=== PATIENT | female | born 1995 | race Two or more races ===

== ENCOUNTER 2020-01-07 09:46 | Emergency (ER) | payer SELFPAY ==
[~2020-01-07] VITALS: Ht 160 cm; Wt 80.0 kg
[2020-01-07] MEDS ORDERED: SODIUM CHLORIDE 0.9% 1,000 ML IV ONE (10:21)
[2020-01-07] MEDS ORDERED: FAMOTIDINE 20MG/2ML VIAL IV STA (10:21)
[2020-01-07] MEDS ORDERED: KETOROLAC 30MG/ML VIAL IV STA (10:21)
[2020-01-07 10:39] LABS: BASOPHILS % 0.3 % (0.0-2.0); EOSINOPHILS % 0.3 % (0.0-5.0); HEMATOCRIT. 40.1 % (36.0-48.0); HEMOGLOBIN. 13.6 g/dL (12.0-16.0); LYMPHOCYTES % 19.9 % (20.0-50.0); MEAN CORPUSCULAR HEMOGLOBIN 27.6 pg (28.0-32.0); MEAN CORPUSCULAR VOLUME 81.3 fL (81.0-99.0); MEAN PLATELET VOLUME 7.6 fl (7.4-10.4); MONOCYTES % 3.7 % (2.0-8.0); NEUTROPHILS % 75.8 % (40.0-76.0); PLATELET 272 x1000/uL (130-400); RED BLOOD CELL COUNT 4.94 mill/uL (4.2-5.4); RED CELL DISTRIBUTION WIDTH 14.9 % (11.6-14.6)
[2020-01-07 10:41] LABS: INR 0.9; PROTHROMBIN TIME 10.1 sec (9.6-11.0)
[2020-01-07 10:49] LABS: CHLORIDE 110 mEq/L (98-107); CLARITY URINE CLEAR (CLEAR); COLOR URINE YELLOW (YELLOW); KETONES URINE NEGATIVE (NEGATIVE); LEUKOCYTE ESTERASE URINE TRACE (NEGATIVE); NITRITE URINE NEGATIVE (NEGATIVE); OCCULT BLOOD URINE NEGATIVE (NEGATIVE); PH URINE 5.5 (4.5-8.0); PROTEIN URINE NEGATIVE (NEGATIVE); SPECIFIC GRAVITY URINE 1.029 (1.005-1.030)
[2020-01-07 12:00] VITALS: BP 110/69
== END 2020-01-07 12:14 | disposition home or self-care (01) ==
LOC: ER 09:46
DX: K80.20 Calculus of gallbladder without cholecystitis without obstruction (principal)
CPT/HCPCS: 36415; 76705; 80053; 81003; 81025; 83690; 85025; 85610; 96361; 96374; 96375; 99284; J1885; J3490; J7030

== ENCOUNTER 2020-01-08 08:14 | Emergency (ER) | payer SELFPAY ==
[~2020-01-08] VITALS: Ht 160 cm; Wt 79.0 kg
[2020-01-08] MEDS ORDERED: ONDANSETRON HCL 4MG/2ML INJ IV ONE (08:45)
[2020-01-08] MEDS ORDERED: MORPHINE SULFATE 4 MG/ML CPJ (NOT FOR IM USE) IV ONE (08:45)
[2020-01-08 08:53] LABS: BASOPHILS % 0.5 % (0.0-2.0); EOSINOPHILS % 1.3 % (0.0-5.0); HEMOGLOBIN. 13.1 g/dL (12.0-16.0); LYMPHOCYTES % 30.3 % (20.0-50.0); MEAN CORPUSCULAR HEMOGLOBIN 27.1 pg (28.0-32.0); MEAN CORPUSCULAR VOLUME 80.8 fL (81.0-99.0); MEAN PLATELET VOLUME 7.5 fl (7.4-10.4); MONOCYTES % 6.7 % (2.0-8.0); NEUTROPHILS % 61.2 % (40.0-76.0); PLATELET 284 x1000/uL (130-400); RED BLOOD CELL COUNT 4.82 mill/uL (4.2-5.4); RED CELL DISTRIBUTION WIDTH 15.1 % (11.6-14.6)
[2020-01-08 08:58] LABS: INR 0.9; PROTHROMBIN TIME 10.3 sec (9.6-11.0)
[2020-01-08 08:59] LABS: CHLORIDE 110 mEq/L (98-107)
[2020-01-08] MEDS ORDERED: ACETAMINOPHEN WITH CODEINE 300/30MG TABLET PO ONE (11:30)
[2020-01-08 11:57] VITALS: BP 135/83
== END 2020-01-08 11:30 | disposition home or self-care (01) ==
LOC: ER 08:14
DX: K80.20 Calculus of gallbladder without cholecystitis without obstruction (principal); K76.0 Fatty (change of) liver, not elsewhere classified; R03.0 Elevated blood-pressure reading, without diagnosis of hypertension
CPT/HCPCS: 36415; 76705; 80053; 83690; 85025; 85610; 96374; 96375; 99284; J2270; J2405